=== PATIENT | female | born 1965 | race Caucasian/White ===

== ENCOUNTER 2017-10-30 11:53 | Day surgery (SDC) | payer MEDICAID, SELFPAY ==
[2017-10-30] VITALS (7 sets, daily range): BP systolic 99–123; BP diastolic 63–85; PULSE 72–96; RESP 16–18; TEMP 35.8–36.6; O2SAT 95–99; BMI 47.3
--- NOTE | 2017-10-30 13:30 | RAD_ITS ---
STUDY: X-RAY - LUMBAR SPINE REASON FOR EXAM: Female, 52 years old. Fluoroscopy of the lower back TECHNIQUE: 3 view(s) of the lumbar spine were obtained. COMPARISON: None FINDINGS: Intraoperative fluoroscopy was obtained for 4 level nerve ablation. No acute abnormalities are noted. Please see the performing physician's report for full details. RAD/L/S Spine Min 4 Views IMPRESSION: As above Electronically Signed: Arcenio Pete DO at 15:32 EST Tel , Service support ,
[2017-10-30] MEDS: Bupivacaine 0.25% 30 ML Vial (14:00)
[2017-10-30] MEDS: Triamcinolone Acetonide 40 MG/ML Vial (14:09)
--- NOTE | 2017-10-30 15:21 | PCM.DC ---
- Discharge Diagnoses Current Active Problems: Lumbar facets pain Reason(s) for Visit for Discharge Instructions: Lumbar Facets block / right side You will use the following diet at home:: No restrictions Your food should be the consistency of: Regular Discharge Activity: Return to Normal Activity Call your doctor if your incision/area has: Continuous Slow Oozing, Sudden Increased Bleeding, Increased Pain/ Swelling Call your doctor if you observe: Fever of 101 or Higher, Coldness, Increased Pain, Inability to have a bowel movement, Uncontrolled pain Cleanse incision/area with: Soap & Water Instructions: What Is Osteoarthritis?, Osteoarthritis: Injections or Surgery Allergies/Adverse Reactions: Allergies bupropion HCl [From Wellbutrin] Allergy (Verified 10/19/17 10:21) Shortness of breath Penicillins Allergy (Verified 10/19/17 10:21) Hives pregabalin [From Lyrica] Allergy (Verified 10/19/17 10:21) Other Medications to take at Discharge Albuterol Sulfate [Proventil Hfa] 6.7 gm IH Q4H PRN 05/15/15 Duloxetine Hcl [Cymbalta] 120 mg PO DAILY 05/15/15 Gabapentin [Neurontin] 800 mg PO 4X/DAY 05/15/15 Levothyroxine [Synthroid] 25 mcg PO DAILY 05/15/15 Pravastatin Sodium [Pravachol] 10 mg PO QHS 05/15/15 Quetiapine Fumarate [Seroquel] 600 mg PO QHS 05/15/15 Rivaroxaban [Xarelto] 20 mg PO DAILY 05/15/15 Ropinirole HCl [Requip Xl] 4 mg PO QHS 05/15/15 Tizanidine HCl [Zanaflex] 4 mg PO TID 05/15/15 Fluticasone 0.05% [Flonase Nasal [place]] 2 spray NASAL DAILY 11/28/15 Benztropine [Cogentin] 0.5 mg PO BID 12/14/16 Buspirone HCl [Buspar] 30 mg PO BID 12/14/16 Ranitidine [Zantac] 300 mg PO DAILY 12/14/16 Lisinopril 1 tab PO DAILY 12/16/16 Omeprazole [Prilosec] 40 mg PO QHS 06/23/17 Tiotropium Br/Olodaterol HCl [Stiolto Respimat Inhal [place]] 2 puff IH DAILY 06/23/17 Topiramate [Topamax] 150 mg PO QHS 06/23/17 Albuterol Aerosols [Ventolin Aerosols] 2.5 mg INHALATION Q6H PRN PRN 07/14/17 Docusate Sodium [Colace] 100 mg PO BID PRN PRN #10 cap 07/23/17 oxycodone-acetaminophen 5 mg-325 mg tablet 1 - 2 tab PO Q4H PRN PRN #30 tab 08/31/17 Primary Care Physician: Stephany Davis, [employer] [Primary Care Provider] - Please Follow Up With: Andreina Martinez MD
--- NOTE | 2017-10-30 15:24 | PCM.OP.BLANK ---
Problem List (1) Spondylosis of lumbar region without myelopathy or radiculopathy Status: Acute Operative Report Date of Procedure: 10/30/17 RIGHT LUMBAR FACETS MEDIAL NERVE BRANCH BLOCK AT RIGHT L3-4, L4-5, L5-S1 UNDER FLUOROSCOPIC GUIDANCE Under sterile condition, patient in OR 1, placed on Prone position, pressure points were padded. After appropriate sedation with Anesthesia team, identified access points under fluoroscopy guidance to the right l3-4, L4-5, L5-S1 facets joints access to the Medial nerve branch supplying those joints with Oblique/ lateral and AP fluoroscopy guidance . Infiltration of skin with local anesthesia Lidocaine 1 % preservative free 2.5 ml at each point. Using 22 gauge needle 5 inches in length to access to the MNB supplying each of the facets jints indicated above. After confirmation of final placement , injected 2.5 ml ,mixture of Marcaine 0.25 % and Kenalog 20 mg at each nerve. Patient has tolerated the procedure well, intact neurological function after the procedure and discharged home in stable condition to follow up with plan at office visit as discussed in pre procedure visit, patient has expressed full understanding of the above .
== END 2017-10-30 15:22 | disposition home or self-care (01) ==
LOC: SDC 11:55 → ACINP 11:57 → AC 12:03
PROVIDERS: Family Provider Nurse Practitioner Family; PCP Nurse Practitioner Family; Visit Provider Anesthesiology
PROC: 3E0T3BZ Introduction of Anesthetic Agent into Peripheral Nerves and Plexi, Percutaneous Approach (ICD-10-PCS; CPT 64493; principal; 2017-10-30 13:25)
DX: M47.816 Spondylosis without myelopathy or radiculopathy, lumbar region (principal); M17.0 Bilateral primary osteoarthritis of knee; E66.01 Morbid (severe) obesity due to excess calories; Z68.42 Body mass index [BMI] 45.0-49.9, adult; M50.121 Cervical disc disorder at C4-C5 level with radiculopathy; M50.221 Other cervical disc displacement at C4-C5 level; M50.320 Other cervical disc degeneration, mid-cervical region, unspecified level; M51.36 Other intervertebral disc degeneration, lumbar region; M51.16 Intervertebral disc disorders with radiculopathy, lumbar region; G89.4 Chronic pain syndrome; Z79.891 Long term (current) use of opiate analgesic; Z79.899 Other long term (current) drug therapy; Z86.711 Personal history of pulmonary embolism; Z86.718 Personal history of other venous thrombosis and embolism; Z79.01 Long term (current) use of anticoagulants; J44.9 Chronic obstructive pulmonary disease, unspecified; F17.200 Nicotine dependence, unspecified, uncomplicated; G47.30 Sleep apnea, unspecified; R01.1 Cardiac murmur, unspecified; Z85.41 Personal history of malignant neoplasm of cervix uteri; E78.00 Pure hypercholesterolemia, unspecified; K21.9 Gastro-esophageal reflux disease without esophagitis; E06.9 Thyroiditis, unspecified; F32.9 Major depressive disorder, single episode, unspecified; F41.9 Anxiety disorder, unspecified; G25.81 Restless legs syndrome
CPT/HCPCS: 64493; 64494; 64495; 64483; 72110; J7120

== ENCOUNTER 2017-11-13 11:53 | Day surgery (SDC) | payer MEDICAID, SELFPAY ==
[2017-10-30 12:35] VITALS: BMI 47.3
[2017-10-30 14:40] VITALS: BP 99/75
[2017-11-13 12:26] VITALS: BP 131/82; PULSE 76; RESP 18; TEMP 36.5; O2SAT 96; BMI 45.6
--- NOTE | 2017-11-13 13:23 | DCINST_ITS ---
- Discharge Diagnoses Current Active Problems: Lower back pain due to lumbar facet disease You will use the following diet at home:: No restrictions Your food should be the consistency of: Regular Discharge Activity: Return to Normal Activity May shower in (days): 1 May resume sexual activity in: No Restrictions Weight Bearing Status: Weight bearing as tolerated Call your doctor if your incision/area has: Continuous Slow Oozing, Sudden Increased Bleeding, Increased Pain/ Swelling, Foul Smelling Discharge, Swelling at the incision site Call your doctor if you observe: Fever of 101 or Higher, Coldness, Increased Pain, Uncontrolled pain Suture Line Care: Avoid Pulling/Pushing, Avoid Pinching/Bending Cleanse incision/area with: Soap & Water Allergies/Adverse Reactions: Allergies bupropion HCl [From Wellbutrin] Allergy (Verified 11/04/17 13:45) Shortness of breath Penicillins Allergy (Verified 11/04/17 13:45) Hives pregabalin [From Lyrica] Allergy (Verified 11/04/17 13:45) Other Medications to take at Discharge Duloxetine Hcl [Cymbalta] 120 mg PO DAILY 05/15/15 Gabapentin [Neurontin] 800 mg PO 4X/DAY 05/15/15 Levothyroxine [Synthroid] 25 mcg PO DAILY 05/15/15 Pravastatin Sodium [Pravachol] 10 mg PO QHS 05/15/15 Quetiapine Fumarate [Seroquel] 600 mg PO QHS 05/15/15 Ropinirole HCl [Requip Xl] 4 mg PO QHS 05/15/15 Tizanidine HCl [Zanaflex] 4 mg PO TID 05/15/15 Fluticasone 0.05% [Flonase Nasal [place]] 2 spray NASAL DAILY 11/28/15 Benztropine [Cogentin] 0.5 mg PO BID 12/14/16 Buspirone HCl [Buspar] 30 mg PO BID 12/14/16 Ranitidine [Zantac] 300 mg PO DAILY 12/14/16 Lisinopril 1 tab PO DAILY 12/16/16 Omeprazole [Prilosec] 40 mg PO QHS 06/23/17 Topiramate [Topamax] 150 mg PO QHS 06/23/17 Albuterol Aerosols [Ventolin Aerosols] 2.5 mg INHALATION Q6H PRN PRN 07/14/17 Docusate Sodium [Colace] 100 mg PO BID PRN PRN #10 cap 07/23/17 oxycodone-acetaminophen 5 mg-325 mg tablet 1 - 2 tab PO Q4H PRN PRN #30 tab 01/12 albuterol sulfate HFA 90 mcg/actuation aerosol inhaler 2 puff INHALATION Q4H PRN #18 g 11/04/17 rivaroxaban 20 mg tablet 20 mg PO DAILY #90 tab 11/04/17 tiotropium 2.5 mcg-olodaterol 2.5 mcg/actuation mist for inhalation 2 puff INHALATION DAILY #4 g 11/04/17 Primary Care Physician: Maude Villegas [Primary Care Provider] - Please Follow Up With: Andreina Martinez MD
--- NOTE | 2017-11-13 13:50 | RAD_ITS ---
STUDY: X-RAY - LUMBAR SPINE REASON FOR EXAM: Female, 52 years old. Left L3-S1 facet block. TECHNIQUE: 3 cone-down view(s) of the lumbar spine were obtained intraoperatively. COMPARISON: None FINDINGS: Imaging provided for left L3-S1 facet joint block. RAD/Lumbar Spine 2 or 3 Views IMPRESSION: Imaging provided for left L3-S1 facet block. Electronically Signed: Cortez Pearson MD at 14:54 EST Tel [phone], Service support ,
--- NOTE | 2017-11-13 13:56 | PCM.OPRPT ---
Problem List (1) Spondylosis of lumbar region without myelopathy or radiculopathy Status: Acute Report of Operation Date of Procedure: 11/13/17 Pre-Operative Diagnosis: Lumbar facet spondylosis and lower back pain Post-Operative Diagnosis: Lumbar facet spondylosis causing lower back pain Surgery/Procedure Performed:: Left side lumbar facets medial nerve branch block at L3 4 L4-5. L5 S1 under fluoroscopy guidance Description of Surgical Findings:: Under sterile conditions. Patient placed in the prone position, pressure points were padded, patient was ready from the nursing and the anesthesia team. After identification of the side and the target area for the block under guided fluoroscopy, the entry site was marked with marking pen. I used Betadine for sterilization of the skin, sterile draping were applied. Using 25-gauge needle to infiltrate the skin with local anesthesia using preservative-free lidocaine 0.5% injected 2.5 mL at each site of entry. Using oblique fluoroscopy, accessed the right medial nerve branches supplying the left lumbar facets L3-4, L4-5, L5-S1 using 22-gauge spinal needle. After confirmation of appropriate needle placement to the targeted area with AP and lateral fluoroscopy, injected 2.5 mL mixture of preservative-free Marcaine 0.5% and Kenalog 20 mg at each site. [place] was removed, pressure dressing were applied. Patient tolerated the procedure well and was taken to the recovery. Type of Anesthesia:: Local MAC, MAC Special Medications: Lidocaine 2.5% preservative-free, preservative-free bupivacaine quarter percent, Kenalog 80 mg Estimated Blood Loss (mL): None Fluids Replaced: Normal saline 50 cc Description of Procedure: Left lumbar facet blocks/medial nerve branch block under fluoroscopy guidance
[2017-11-13] MEDS: Triamcinolone Acetonide 40 MG/ML Vial (14:12)
[2017-11-13] MEDS: Bupivacaine 0.25% 30 ML Vial (14:12)
[2017-11-13 14:28] VITALS: BP 103/89; BP 131/82; PULSE 77; RESP 16; TEMP 37.1; O2SAT 96
[2017-11-13 14:33] VITALS: BP 121/66; BP 131/82; PULSE 75; RESP 16; O2SAT 96
[2017-11-13 14:38] VITALS: BP 120/81; BP 131/82; PULSE 76; RESP 16; O2SAT 96
[2017-11-13 14:43] VITALS: BP 125/83; BP 131/82; PULSE 76; RESP 16; TEMP 36.4; O2SAT 96
[2017-11-13 14:58] VITALS: BP 131/82
== END 2017-11-13 15:00 | disposition home or self-care (01) ==
LOC: SDC 11:53 → AC 11:55
PROVIDERS: Visit Provider Anesthesiology
PROC: 3E0T3BZ Introduction of Anesthetic Agent into Peripheral Nerves and Plexi, Percutaneous Approach (ICD-10-PCS; principal; 2017-11-13 13:45)
DX: M47.816 Spondylosis without myelopathy or radiculopathy, lumbar region (principal); I10 Essential (primary) hypertension; J44.9 Chronic obstructive pulmonary disease, unspecified; F17.200 Nicotine dependence, unspecified, uncomplicated; E78.00 Pure hypercholesterolemia, unspecified; M19.90 Unspecified osteoarthritis, unspecified site; E06.9 Thyroiditis, unspecified; F32.9 Major depressive disorder, single episode, unspecified; F41.9 Anxiety disorder, unspecified; K76.9 Liver disease, unspecified; Z86.711 Personal history of pulmonary embolism; Z79.01 Long term (current) use of anticoagulants; G25.81 Restless legs syndrome; K21.9 Gastro-esophageal reflux disease without esophagitis; Z85.41 Personal history of malignant neoplasm of cervix uteri; R01.1 Cardiac murmur, unspecified; Z79.899 Other long term (current) drug therapy
CPT/HCPCS: 01922; 64493; 64494; 64495; 64483; 72100; J7120

== ENCOUNTER → 2017-11-27 13:14 | Outpatient (CLI) | payer MEDICAID, SELFPAY ==
[2017-11-27 14:19] LABS: Amphetamine Urine VISTA NEGATIVE (<1000 ng/mL); Barbiturate Urine VISTA NEGATIVE (< 200 ng/mL); Benzodiazepine Urine VISTA NEGATIVE (< 200 ng/mL); Cocaine Urine VISTA NEGATIVE (< 300 ng/mL); Ecstacy Urine VISTA NEGATIVE (< 500 ng/mL); Methadone Urine VISTA NEGATIVE (< 300 ng/mL); PCP Urine VISTA NEGATIVE (< 25 ng/mL); THC Urine VISTA NEGATIVE (< 50 ng/mL); Vista UDS pH Range 5
== END ==
PROVIDERS: Visit Provider Anesthesiology
DX: F11.20 Opioid dependence, uncomplicated (principal)
CPT/HCPCS: 80307

== ENCOUNTER → 2018-01-11 10:18 | Outpatient (CLI) | payer MEDICAID, SELFPAY ==
--- NOTE | 2018-01-11 10:20 | RAD_ITS ---
STUDY: X-RAY - LEFT KNEE REASON FOR EXAM: Female, 52 years old. Total knee replacement. 6 month follow-up. TECHNIQUE: 4 view(s) of the knee. COMPARISON: Comparison is made with prior study dated September 02, 2017. FINDINGS: Normal visualized distal femur. Normal visualized proximal tibia and fibula. Normal proximal tibiofibular articulation. The patient is status post left total knee replacement. There is good alignment. The soft tissue structures are unremarkable. RAD/Knee 4 or More Views IMPRESSION: Status post left total knee replacement. There is good alignment. Electronically Signed: Cortez Pearson MD at 15:39 EDT Tel [phone], Service support ,
[2019-01-11 16:43] LABS: Pathologist Comment May follow
[2019-01-11 21:31] LABS: CRYSTALS, BODY FLUID See PATH REV; Source- Body Fluid SYNOVIAL
[2019-01-11 21:32] LABS: Appearance /Synovial Fluid Clear (CLEAR); Color / Synovial Fluid Yellow (Pale Yellow); RBC /Synovial Fluid 31 /mm3 (0); WBC / Synovial Fluid 11 /mm3 (0)
[2019-01-11 21:33] LABS: Lymph 36 %; Monocyte /Synovial Fluid 17 %; Neutrophil 57 % (0-25); Other Cell /Synovial Fluid 40 %
[2019-01-13 13:58] LABS: Pathologist Review Reviewed
[2019-01-13 16:32] LABS: GLUCOSE, SYNOVIAL FLUID 109 mg/dL (.); PROTEIN, SYNOVIAL FLUID 3.5 g/dL (.)
== END ==
PROVIDERS: Orthopaedic Surgery; Visit Provider Orthopaedic Surgery
DX: M17.12 Unilateral primary osteoarthritis, left knee (principal); Z96.652 Presence of left artificial knee joint
CPT/HCPCS: 73564; 82945; 84157; 87070; 87075; 87205; 89050; 89051; 89060

== ENCOUNTER → 2018-01-28 10:59 | Outpatient (CLI) | payer MEDICAID, SELFPAY ==
[2017-11-04 13:44] VITALS: BP 115/65
[2017-11-04 13:58] VITALS: BMI 47.3
--- NOTE | 2018-01-29 07:52 | PFTCOMP ---
COMPLETE PULMONARY FUNCTION TEST INTERPRETATION Brief HPI: Patient is a 52 year old female, currently under the care of Brie Ortiz, who presents to [facility] for complete pulmonary function tests secondary to diagnosis of dyspnea. Respiratory therapist reports good effort and reproducible results. Interpretation: Forced expiration spirometry shows no large airways obstructive ventilatory defect with an FEV1 of 71% predicted. There is no significant bronchodilator response by ATS criteria. Spirograms are of good quality and plateau slowly, indicating slowly emptying areas of the lungs. The respiratory flow volume loop shows decreased expiratory flow rates at high lung volumes consistent with small airways obstruction. Lung volumes by body plethysmography show a normal total lung capacity at 5.24 L, 91% predicted. All other lung volumes are within normal limits. Diffusion capacity by carbon monoxide is decreased at 65% predicted. The airway resistance is normal. Compared to previous pulmonary function tests from November 07, 2016, there has been a significant improvement in FVC, FEV1 and DLCO. Impression: Isolated reduction in diffusing capacity consistent with pulmonary vascular disorder. There has been significant improvement compared to previous testing and patient appears to be back at previous baseline.
--- NOTE | 2018-01-29 07:55 | PFTCOMP_ITS ---
COMPLETE PULMONARY FUNCTION TEST INTERPRETATION Brief HPI: Patient is a 52 year old female, currently under the care of Brie Ortiz, who presents to [facility] for complete pulmonary function tests secondary to diagnosis of dyspnea. Respiratory therapist reports good effort and reproducible results. Interpretation: Forced expiration spirometry shows no large airways obstructive ventilatory defect with an FEV1 of 71% predicted. There is no significant bronchodilator response by ATS criteria. Spirograms are of good quality and plateau slowly, indicating slowly emptying areas of the lungs. The respiratory flow volume loop shows decreased expiratory flow rates at high lung volumes consistent with small airways obstruction. Lung volumes by body plethysmography show a normal total lung capacity at 5.24 L , 91% predicted. All other lung volumes are within normal limits. Diffusion capacity by carbon monoxide is decreased at 65% predicted. The airway resistance is normal. Compared to previous pulmonary function tests from November 07, 2016, there has been a significant improvement in FVC, FEV1 and DLCO. Impression: Isolated reduction in diffusing capacity consistent with pulmonary vascular disorder. There has been significant improvement compared to previous testing and patient appears to be back at previous baseline.
== END ==
PROVIDERS: Visit Provider Nurse Practitioner Acute Care
DX: R06.02 Shortness of breath (principal)
CPT/HCPCS: 94060; 94726; 94729

== ENCOUNTER → 2018-02-01 11:00 | Outpatient (CLI) | payer MEDICAID, SELFPAY ==
[2017-11-04 13:44] VITALS: BP 115/65
[2017-11-04 13:58] VITALS: BMI 47.3
[2018-02-01 11:28] VITALS: PULSE 102; PULSE 103; PULSE 79; PULSE 83; PULSE 88; PULSE 92; PULSE 94; PULSE 99; O2SAT 94; O2SAT 95; O2SAT 96; O2SAT 98
--- NOTE | 2018-02-01 14:40 | WT_ITS ---
PSN 6 Minute Walk Test - 6 Minute Walk Test 6 Minute Walk Test: 6 Minute Walk Test PSN:6-Minute Walk Test Start: 02/01/18 11: 28 Freq: Status: Active Protocol: [id number] Document 02/01/18 11:28 KAREN (Rec: 02/01/18 11:30 KAREN [id number]) 6 Minute Walk Test Date Performed 02/01/18 Time Performed 11:05 Height 5 ft 9 in Weight: 300 lb Weight in Pounds 300.[address]: Dallin Hatch Assistive device used: Cane Pre-test Oxygen Delivery Method Room Air Pulse Ox (%) 96 Pulse Rate (60-100 beats/min) 79 Dyspnea Tiki Scale (0-10) 0 Exertion Tiki Scale (6-20) 6 1st minute Oxygen Delivery Method Room Air Pulse Ox (%) 95 Pulse Rate (60-100 beats/min) 83 2nd minute Oxygen Delivery Method Room Air Pulse Ox (%) 95 Pulse Rate (60-100 beats/min) 92 3rd minute Oxygen Delivery Method Room Air Pulse Ox (%) 94 Pulse Rate (60-100 beats/min) 94 Number of Rests Taken 1 4th minute Oxygen Delivery Method Room Air Pulse Ox (%) 94 Pulse Rate (60-100 beats/min) 99 5th minute Oxygen Delivery Method Room Air Pulse Ox (%) 94 Pulse Rate (60-100 beats/min) 102 H 6th minute Oxygen Delivery Method Room Air Pulse Ox (%) 94 Pulse Rate (60-100 beats/min) 103 H Dyspnea Tiki Scale (0-10) 2 Exertion Tiki Scale (6-20) 14 Post-test Oxygen Delivery Method Room Air Pulse Ox (%) 98 Pulse Rate (60-100 beats/min) 88 Full Laps Walked 12 Partial Lap, Number of Tiles Walked 25 Total Distance Walked (ft) 733 - Interpretation Interpretation: The patient ambulated 733 feet over the course of 6 minutes beginning on room air with use of a cane. Pretesting oxygen saturation was noted to be 96% on room air. With ambulation, the umu oxygen saturation was 94%. Although there was evidence of impaired walk distance, there was no significant exertional oxygen desaturation. - Recommendations Recommendations: There is no indication for the use of supplemental oxygen at this time.
== END ==
PROVIDERS: Visit Provider Nurse Practitioner Acute Care
DX: R06.02 Shortness of breath (principal)
CPT/HCPCS: 94618

== ENCOUNTER → 2018-05-27 13:35 | Outpatient (CLI) | payer MEDICAID, SELFPAY | PROVIDERS: Visit Provider Orthopaedic Surgery | DX: M25.562 Pain in left knee (principal) | CPT/HCPCS: 73564 ==

== ENCOUNTER → 2018-12-18 07:45 | Outpatient (CLI) | payer MEDICARE, SELFPAY ==
--- NOTE | 2018-12-18 07:45 | CYST_PTH ---
PATIENT: RICH YUEN LOC: [facility] U#:[id number] AGE/SX: 60/F ROOM: RE12/18/[address]: Dr. David Verma MD : 1965 BED: DIS: SPEC #: [id number] RECD: 12/18/18 10:51 STATUS: MINERVA BAUTISTA #: [id number] ZACHARY: 12/18/18 07:[address]: David Verma DEPT: SURGICAL PATHOLOGY RECD BY: Brett Mercedes ENTERED: 12/20/18 12:47 SP TYPE: Cyst OTHR DR: [facility] Tissues: Neck, NOS Procedures: Surgery Specimen Level III HEADER OPERATION: Excision of neck cyst PRE-OP DIAGNOSIS: Sebaceous cyst L72.3 TISSUE SUBMITTED: Neck tissue MICROSCOPIC DIAGNOSIS Neck cyst, biopsy: Epidermal inclusion cyst. SJ:silvestre 12/21/18 MICROSCOPIC DESCRIPTION Slides are reviewed. GROSS DESCRIPTION Received in fixative is one container labeled with the patient's name and designated neck cyst. The specimen consists of a previously ruptured self-white cyst measuring 1 x 0.7 x 0.5 cm. The cyst contents consist of self-white cheesy material. The specimen is bisected and submitted entirely in one cassette. / SJ:silvestre 12/20/18 TC:5 CPT: 07149
[2018-12-18 07:56] VITALS: BMI 40.3
== END ==
PROVIDERS: Referring Provider Surgery; Visit Provider Surgery
DX: L72.3 Sebaceous cyst (principal)
CPT/HCPCS: 88304

== ENCOUNTER → 2018-12-23 09:54 | Outpatient (CLI) | payer MEDICARE, SELFPAY ==
[2018-12-18 07:56] VITALS: BMI 40.3
--- NOTE | 2018-12-23 09:57 | RAD_ITS ---
STUDY: X-RAY - RIGHT KNEE REASON FOR EXAM: Female, 53 years old. He pain for one week. Medial swelling. TECHNIQUE: 3 view(s) of the knee. COMPARISON: None. FINDINGS: Normal visualized distal femur. Normal visualized proximal tibia and fibula. Normal proximal tibiofibular articulation. There is no acute fracture, dislocation or destructive osseous pathology. Normal medial femorotibial compartment. There is mild degenerative arthrosis of the lateral femorotibial compartment. There is moderate degenerative arthrosis of the patellofemoral articulation. There is a soft tissue prominence in the suprapatellar region suggesting a small volume joint effusion. The soft tissue structures are unremarkable. 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 Electronically Signed: Guzman Renee DO at 11:03 EDT Tel [phone], Service support ,
== END ==
DX: M25.561 Pain in right knee (principal)
CPT/HCPCS: 73562

== ENCOUNTER → 2019-03-14 12:39 | Outpatient (CLI) | payer MEDICARE, SELFPAY ==
[2018-12-14 10:35] VITALS: BMI 40.3
[2019-01-11 13:27] VITALS: BMI 39.6
--- NOTE | 2019-03-16 10:05 | PFT ---
INTRODUCTION: The patient is a 53-year-old female that presents for pulmonary function studies secondary to a diagnosis of COPD. Respiratory therapy reports good patient effort. Bronchodilators were used during testing. INTERPRETATION: Forced expiration spirometry demonstrates no evidence of a large airways obstructive ventilatory defect. There was no significant response to aerosolized bronchodilators. Spirograms are of good quality and plateau normally. Body plethysmography was performed and reveals lung volumes to be within normal limits. Diffusing capacity by single breath CO is also within normal limits. IMPRESSION: Normal pulmonary function studies.
== END ==
PROVIDERS: Referring Provider Nurse Practitioner Acute Care; Visit Provider Nurse Practitioner Acute Care
DX: J44.9 Chronic obstructive pulmonary disease, unspecified (principal)
CPT/HCPCS: 94060; 94726; 94729

== ENCOUNTER → 2019-06-24 12:32 | Outpatient (CLI) | payer MEDICARE, SELFPAY ==
[2019-06-15 11:05] VITALS: BMI 37.4
--- NOTE | 2019-06-24 12:35 | BI_ITS ---
MAMMOGRAPHY - BILATERAL SCREENING REASON FOR EXAM: Female, 53 years old. Routine annual screening examination. PERTINENT HISTORY: Non-contributory. TECHNIQUE: Digital bilateral breast fly (3D mammographic acquisition) in the CC and MLO projections. 2-D mediolateral oblique (MLO) and craniocaudad (CC) views of both breasts were obtained. CAD: Full Field Digital Mammography with Computer Added Detection was performed. COMPARISON: Comparison is made with prior examination dated August 31, 2017 and November 13, 2011. FINDINGS: Breast Composition: The breasts are almost entirely fatty. There are no dominant masses or suspicious calcifications. No other significant abnormalities are identified. There has been no significant change since the prior study. BI/SCREEN MAMM (CAD) W/FLY BILAT IMPRESSION: Stable bilateral screening mammogram. Yearly follow-up mammogram recommended. (A) ASSESSMENT CATEGORY: BIRADS Category 1: Negative. A letter regarding these results will be sent to the patient by the facility within 30 days. Approximately 10% of breast cancers are not detected by mammography. A normal mammogram should not delay biopsy of a clinically suspicious abnormality. [id number] Electronically Signed: Cortez Pearson, at 10:18 EDT , Service support ,
== END ==
PROVIDERS: Family Provider Nurse Practitioner Family; PCP Nurse Practitioner Family
DX: Z12.31 Encounter for screening mammogram for malignant neoplasm of breast (principal)
CPT/HCPCS: 77063; 77067

== ENCOUNTER → 2019-08-08 15:12 | Outpatient (CLI) | payer MEDICARE, SELFPAY ==
[2019-06-15 11:05] VITALS: BMI 37.4
--- NOTE | 2019-08-08 15:14 | MRI_ITS ---
STUDY: MRI RIGHT KNEE REASON FOR EXAM: Female, 53 years old. RT KNEE PAIN medial and posterior knee pain x 1 year, unstable TECHNIQUE: Standardized fat and water weighted pulse sequences were obtained in all 3 orthogonal planes. COMPARISON: Right knee x-ray dated December 23, 2018 FINDINGS: A small vertical tear is present in the inner one third aspect of the posterior horn of the medial meniscus. The remaining aspects are within normal limits. There is diffuse, less than 50% thickness articular cartilage loss of the medial femorotibial compartment. Normal medial femoral condyle and tibial plateau. Normal medial collateral ligamentous complex (MCL). Normal distal semimembranosus, gracilis and semitendinosus tendons. Normal lateral meniscus. There is diffuse, less than 50% thickness articular cartilage loss of the lateral femorotibial compartment. Normal lateral femoral condyle and tibial plateau. Normal proximal tibiofibular articulation. Normal lateral collateral (fibular) ligament. Normal popliteus tendon. Normal biceps femoris tendon. Normal anterior cruciate ligament (ACL). Normal posterior cruciate ligament (PCL). Normal congruent patellofemoral articulation. There is diffuse, less than 50% thickness articular cartilage loss of the patellofemoral compartment. Small cortical osteophytes are present in the patellofemoral compartment. Normal medial and lateral patellar retinaculum. Normal quadriceps tendon. Normal patellar tendon. Normal Hoffa's fat pad. There is a small volume joint effusion. Mild fatty atrophy is seen in multiple muscles. The otherwise visualized osseous structures are unremarkable. MRI/Lower Ext Joint Only (Routine) IMPRESSION: 1. Small vertical tear of the posterior horn of the medial meniscus. Mild tricompartmental cartilage thinning. 2. Small joint effusion. Electronically Signed: Tyler Rocha MD at 21:27 EST , Service support ,
== END ==
PROVIDERS: Family Provider Nurse Practitioner Family; PCP Nurse Practitioner Family; Referring Provider Orthopaedic Surgery; Visit Provider Orthopaedic Surgery
DX: S83.241A Other tear of medial meniscus, current injury, right knee, initial encounter (principal); X58.XXXA Exposure to other specified factors, initial encounter
CPT/HCPCS: 73721

== ENCOUNTER 2019-09-05 09:33 | Day surgery (SDC) | payer MEDICARE, SELFPAY ==
[2019-08-23 09:04] VITALS: BMI 37.4
--- NOTE | 2019-08-24 12:01 | HP_ITS ---
Intake Vital Signs 08/23/19 Body Mass Index (BMI) 37.4 08/23/19 Height 5 ft 8 in 08/23/19 Weight: 243 lb 6 oz 08/23/19 Body Mass Index (BMI) 37.0 08/23/19 Blood Pressure 106/70 08/23/19 Blood Pressure Location Rt brachial 08/23/19 Blood Pressure Position Sitting 08/23/19 Respiratory Rate 20 H 08/23/19 Pulse Rate 61 08/23/19 Pulse Ox 98 Intake Visit Reasons: Upper/Lower Scope Abdominal Pain Weight Loss Chief Complaint: nausea/ vomiting Pot Liner Required: No Is patient in pain?: No Allergies bupropion HCl [From Wellbutrin] Allergy (Verified 08/23/19 09:01) Shortness of breath Penicillins Allergy (Verified 08/23/19 09:01) Hives pregabalin [From Lyrica] Allergy (Verified 08/23/19 09:01) Other Medications Levothyroxine [Synthroid] 25 mcg PO DAILY 05/15/15 [History Confirmed 08/23/19] Pravastatin Sodium [Pravachol] 10 mg PO QHS 05/15/15 [History Confirmed 08/23/19] Ropinirole HCl [Requip Xl] 4 mg PO QHS 05/15/15 [History Confirmed 08/23/19] Omeprazole [Prilosec] 40 mg PO QHS 06/23/17 [History Confirmed 08/23/19] Albuterol Aerosols [Ventolin Aerosols] 2.5 mg INHALATION Q6H PRN PRN 07/14/17 [History Confirmed 08/23/19] albuterol sulfate HFA 90 mcg/actuation aerosol inhaler 2 puff INHALATION Q4H PRN #18 g 11/04/17 [Rx Confirmed 08/23/19] gabapentin 300 mg capsule 300 mg PO TID 12/01/18 [History Confirmed 08/23/19] umeclidinium 62.5 mcg-vilanterol 25 mcg/actuation powdr for inhalation 1 inh INHALATION Q24H #60 ea 12/14/18 [Rx Confirmed 08/23/19] cholecalciferol (vitamin D3) 50,000 unit capsule 50,000 unit PO QWEEK 01/28/19 [History Confirmed 08/23/19] fluticasone propionate 50 mcg/actuation nasal spray,suspension 2 spray INTRANASAL DAILY 01/28/19 [History Confirmed 08/23/19] albuterol sulfate HFA 90 mcg/actuation aerosol inhaler 1 puff INHALATION Q6H 08/23/19 [History Confirmed 08/23/19] biotin 5,000 mcg sublingual tablet 5,000 mcg SUBLINGUAL DAILY 08/23/19 [History Confirmed 08/23/19] rivaroxaban 20 mg tablet 20 mg PO DAILY 08/23/19 [History Confirmed 08/23/19] Is last menstrual period known: No Post menopausal: Yes Patient : No PFSH Medical History Essential hypertension (Chronic) Right bundle branch block (Chronic) Nicotine dependence, uncomplicated (Chronic) Body mass index 45.0-49.9, adult (Chronic) Family history of hyperlipidemia (Chronic) Stage 2 moderate COPD by GOLD classification (Chronic) Patent foramen ovale (Chronic) Bilateral primary osteoarthritis of knee (Chronic) Spondylosis of lumbar 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) COPD with acute exacerbation (Acute) COAD (chronic obstructive airways disease) (Chronic) Type II diabetes mellitus (Chronic) History of insomnia (Chronic) Obesity (Chronic) Tobacco dependence syndrome (Chronic) RLS (restless legs syndrome) (Chronic) Shortness of breath (Acute) Chest pain (Acute) DVT (deep venous thrombosis) (Chronic) Pulmonary emboli (Chronic) Factor V Leiden (Acute) Anxiety disorder (Chronic) Bipolar disorder (Chronic) Depression (Chronic) Diabetes mellitus (Inactive) H/O: hysterectomy (Inactive) History of anxiety disorder (Inactive) History of bipolar disorder (Inactive) History of depression (Inactive) History of hypertension (Inactive) History of hysterectomy (Inactive) Hypertension (Inactive) Surgical History History of esophagogastroduodenoscopy (EGD) (Acute) History of hysterectomy (Resolved) History of lithotripsy (Resolved ~2001) S/P tonsillectomy (Resolved ~1977) S/P tubal ligation (Resolved ~1989) Status post left knee replacement (Resolved ~06/2017) History of total knee arthroplasty (Inactive) Family History Mother CAD (coronary artery disease) Hypertension CVA (cerebral vascular accident) Father Diabetes CAD (coronary artery disease) Hypertension Son Migraine Sister Diabetes Hypertension Social History (Updated 08/24/19 @ 12:01 by David Verma MD) alcohol intake: never substance use type: does not use caffeine: Yes (4/day) what type of physical activity do you participate in: walking frequency: daily HPI HPI HPI: RICH CASON, is a 54 F who presents to the office today for HPI HPI Surgical H&P: Yes HPI: RICH CASON, is a 54 F who presents to the office today for Evaluation for endoscopy. She states that she has been having nausea and vomiting mostly at nighttime she has been experiencing any pain she has not been having any change in her bowel movements. She has been on Pepcid and omeprazole secondary to gastroesophageal reflux disease. She has never had a colonoscopy but has had an EGD years ago. All the symptoms started about 2 months ago. ROS General General: Yes weight change and fatigue; no appetite, colon cancer, breast cancer or weakness HEENT HEENT: No difficulty swallowing, eye injury, eye surgery, swollen glands or hoarseness Endo Endocrine: Yes thyroid disease; no diabetes mellitus, thyroid cancer, Hair loss, heat intolerance or cold intolerance Cardio Cardiovascular: Yes murmur; no pacemaker, heart disease, atrial fibrillation, high blood pressure, heart attack, heart stent, palpitations, shortness of breat with exertion or chest pain Resp Respiratory: Yes shortness of breath, No sleep apnea, Yes cough, Yes COPD, No asthma, No emphysema, No wheezing Gastro Gastrointestinal: No abdominal pain, Yes nausea or vomiting, Yes diarrhea, Yes constipation, No blood in stool, Yes acid reflux, Yes hemorrhoids, No ulcers, No gallbladder problem, No black,tarry stools Jose Hematologic: No blood thinners, Yes blood disorders, No bleeding, No anemia, No blood clots Additional Details: factor V Neuro Neurologic: No weakness Exam Const General: no acute distress, well developed, well hydrated Orientation: oriented to person, oriented to place, oriented to time [facility] Head: normocephalic, atraumatic Ears: external ears normal Mouth: moist mucous membranes Eyes Sclera: sclerae normal Pupils: normal by confrontation Neck Neck: no lymphadenopathy noted Neck mass: No Thyroid: thyroid normal, symmetrical Chest Chest palpation & inspection: normal inspection of the chest Resp Effort & Inspection: normal respiratory effort Auscultation: clear to auscultation bilaterally Percussion: percussion normal Cardio Rate: regular rate Rhythm: regular rhythm Heart Sounds: murmur GI Inspection: obesity Palpation: soft, no hepatosplenomegaly, no masses, nontender Rectal Exam: other Other: Rectal exam deferred. Extrem General: normal to inspection, no clubbing, cyanosis or edema Assessment & Plan Problems 1. Non-intractable vomiting with nausea, unspecified vomiting type R11.2 2. Encounter for screening colonoscopy Z12.11 3. Gastroesophageal reflux disease, esophagitis presence not specified K21.9 Plan I have discussed the above with the patient. I have offered the patient colonoscopy As well as an EGD for evaluation. I have explained the risks/benefits of the procedure and described the procedure. I have discussed the risks with the patient, including but not limited to: infection, bleeding, perforation of the GI tract requiring emergency surgery, inability to complete the procedure, injury to any internal organs, complications of anesthesia, etc. - the patient understands and agrees to proceed. I have answered all the patient's questions to the patient's satisfaction and the patient has no further questions. The patient has been given instructions for the colon cleansing preparation. Orders Orders: Colonoscopy 08/23/19 EGD 08/23/19 Coding Level of Care Code Off vis,new,level 3 Diagnoses Non-intractable vomiting with nausea, unspecified vomiting type R11.2 ??Vomiting type: unspecified ??Vomiting Intractability: non-intractable Encounter for screening colonoscopy Z12.11 Gastroesophageal reflux disease, esophagitis presence not specified K21.9 ??Esophagitis presence: esophagitis presence not specified 08/24/19 1201 <Electronically signed by David baker MD> Date _ David Verma MD I have re-examined the patient. There are no clinical changes since date of exam.
--- NOTE | 2019-09-05 | IMM_PTH ---
PATIENT: RICH YUEN LOC: EN U#:[id number] AGE/SX: 54/F ROOM: RE09/05/[address]: Dr. David Verma MD : 1965 BED: DIS: 09/05/2019 SPEC #: [id number] RECD: 09/05/19 15:26 STATUS: MINERVA REAmol #: [id number] ZACHARY: 09/05/19 00:[address]: David Verma DEPT: IMMUNOHISTOCHEMISTRY RECD BY: Amish Mohamud ENTERED: 09/05/19 15:26 SP TYPE: IMMUNO OTHR DR: Stephany Davis, GUNSTOCK REPAIRER-C [facility] Tissues: Stomach, NOS Procedures: H Pylori (initial) PHYSICIAN & INSTITUTION [place] [id number] SPECIMEN INFORMATION: Tissue Source: B. Stomach biopsy Clinical Info: Nausea and vomiting, GERD, screening colon Specimen Number: [id number] CPT code: 92805 METHODOLOGY: Deparaffinized sections of prefer/formalin-fixed tissue or PAP/DQ stained slides are incubated with monoclonal/polyclonal antibodies/oligonucleotide probes. Localization is made via biotin free immunoperoxidase method. Appropriate controls are performed and reacted as expected. Results on target cell population are indicated in the following table: RESULTS: ANTIBODY / CLONE RESULT Block B H Pylori (polyclonal) negative These tests were developed and their performance characteristics determined by [facility]. They may not have been cleared or approved by the U.S. Food and Drug Administration. The FDA has determined that such clearance or approval is not necessary. INTERPRETATION: B. Stomach, biopsy: Negative for Helicobacter pylori organisms. AM:abdi 09/06/19
--- NOTE | 2019-09-05 | EGD_PTH ---
PATIENT: RICH YUEN LOC: EN U#:[id number] AGE/SX: 54/F ROOM: RE09/05/[address]: Dr. David Verma MD : 1965 BED: DIS: 09/05/2019 SPEC #: [id number] RECD: 09/05/19 13:46 STATUS: MINERVA BAUTISTA #: [id number] ZACHARY: 09/05/19 00:[address]: David Verma DEPT: SURGICAL PATHOLOGY RECD BY: Cayden Diego ENTERED: 09/05/19 13:47 SP TYPE: EGD BIOPSY MOI DR: Stephany Davis, MUCK MINER-C [facility] Tissues: A - Small intestine biopsy B - Stomach, NOS C - Ascending colon Procedures: Surgery Specimen Level IV HEADER OPERATION: Colonoscopy, EGD ([facility]) PRE-OP DIAGNOSIS: Nausea and vomiting, GERD, screening colon TISSUE SUBMITTED: A. Small bowel biopsy, B. Stomach biopsy, C. Ascending colon polyp MICROSCOPIC DIAGNOSIS A. Small bowel, biopsy: No pathologic change. B. Stomach, biopsy: Mild chronic gastritis. C. Ascending colon polyp, biopsy: Fragments of tubular adenoma. AM:andria 09/06/19 COMMENT B. The results of immunohistochemistry for Helicobacter pylori will be reported separately ([id number]). MICROSCOPIC DESCRIPTION Slides are reviewed. GROSS DESCRIPTION A. Received is one container labeled with the patient name and designated small bowel biopsy. The specimen consists of one irregular fragment of light self soft tissue that measures 0.6 x 0.3 x 0.1 cm. The specimen is totally submitted in one cassette. B. Received is one container labeled with the patient name and designated stomach biopsy. The specimen consists of one irregular fragment of light self soft tissue that measures 0.7 x 0.2 x 0.1 cm. The specimen is totally submitted in one cassette. C. Received is one container labeled with the patient name and designated ascending colon polyp. The specimen consists of multiple irregular fragments of light self soft tissue that in aggregate measure 0.6 x 04 x 0.1 cm. The specimen is totally submitted in one cassette. / WINSTON:andria 09/05/19 TC: 3 CPT: 56786 x3
[2019-09-05 09:54] VITALS: BP 108/65; PULSE 66; RESP 15; TEMP 36.6; O2SAT 97; BMI 36.3
[2019-09-05] MEDS: Lactated Ringers 1,000 ML 100 ML IV (10:03)
--- NOTE | 2019-09-05 10:55 | OP.EGD_ITS ---
Patient Name: Ly rOta Procedure Date: 09/05/2019 10:18 AM Date of : 1965 Age: 54 Procedure: Upper GI endoscopy Indications: Gastro-esophageal reflux disease, Nausea with vomiting Providers: David Verma MD Referring MD: Maude Suazo [facility] Medicines: See the Anesthesia note for documentation of the administered medications Patient Profile: This is a 54 year old female. Refer to note in patient chart for documentation of history and physical. Complications: No immediate complications. Procedure: Pre-Anesthesia Assessment: - Prior to the procedure, a History and Physical was performed, and patient medications and allergies were reviewed. The patient's tolerance of previous anesthesia was also reviewed. The risks and benefits of the procedure and the sedation options and risks were discussed with the patient. All questions were answered, and informed consent was obtained. Prior Anticoagulants: The patient has taken Xarelto (rivaroxaban), last dose was 7 days prior to procedure. ASA Grade Assessment: III - A patient with severe systemic disease. After reviewing the risks and benefits, the patient was deemed in satisfactory condition to undergo the procedure. After obtaining informed consent, the endoscope was passed under direct vision. Throughout the procedure, the patient's blood pressure, pulse, and oxygen saturations were monitored continuously. The gastroscope was introduced through the mouth, and advanced to the second part of duodenum. The upper GI endoscopy was accomplished without difficulty. The patient tolerated the procedure well. Scope In: 10:28:51 AM Scope Out: 10:33:07 AM Total Procedure Duration Time 0 hours 4 minutes 16 seconds Findings: The examined esophagus was normal. Localized mildly erythematous mucosa without bleeding was found in the prepyloric region of the stomach. Biopsies were taken with a cold forceps for Helicobacter pylori testing. The examined duodenum was normal. Biopsies for histology were taken with a cold forceps for evaluation of celiac disease. Impression: - Normal esophagus. - Erythematous mucosa in the prepyloric region of the stomach. Biopsied. - Normal examined duodenum. Biopsied. Recommendation: - Await pathology results. - Repeat upper endoscopy (date not yet determined) for surveillance. - Return to physician plant attendant or assistant operator in 1 week. - Continue present medications. Procedure Code(s): --- Professional --- 22537, Esophagogastroduodenoscopy, flexible, transoral; with biopsy, single or multiple Diagnosis Code(s): --- Professional --- K31.89, Other diseases of stomach and duodenum K21.9, Gastro-esophageal reflux disease without esophagitis R11.2, Nausea with vomiting, unspecified CPT copyright 2017 [employer]. All rights reserved. The codes documented in this report are preliminary and upon knuckler review may be revised to meet current compliance requirements. MD Dvaid Gutierrez MD 09/05/2019 10:55:19 AM This report has been signed electronically. Number of Addenda: 0 Note Initiated On: 09/05/2019 10:18 AM
[2019-09-05 10:59] VITALS: BP 108/65; BP 87/58; PULSE 58; RESP 16; TEMP 36.7; O2SAT 95
--- NOTE | 2019-09-05 10:59 | OP.COLON_ITS ---
Patient Name: Ly Orta Procedure Date: 09/05/2019 10:34 AM Date of : 1965 Age: 54 Procedure: Colonoscopy Indications: Screening for colorectal malignant neoplasm Providers: David Verma MD Referring MD: Maude Suazo [facility] Medicines: See the Anesthesia note for documentation of the administered medications Patient Profile: This is a 54 year old female. Refer to note in patient chart for documentation of history and physical. Last Colonoscopy: none. The patient's first colonoscopy is today. Complications: No immediate complications. Procedure: Pre-Anesthesia Assessment: - Prior to the procedure, a History and Physical was performed, and patient medications and allergies were reviewed. The patient's tolerance of previous anesthesia was also reviewed. The risks and benefits of the procedure and the sedation options and risks were discussed with the patient. All questions were answered, and informed consent was obtained. Prior Anticoagulants: The patient has taken Xarelto (rivaroxaban), last dose was 7 days prior to procedure. ASA Grade Assessment: III - A patient with severe systemic disease. After reviewing the risks and benefits, the patient was deemed in satisfactory condition to undergo the procedure. After I obtained informed consent, the scope was passed under direct vision. Throughout the procedure, the patient's blood pressure, pulse, and oxygen saturations were monitored continuously. The colonoscope was introduced through the anus and advanced to the cecum, identified by appendiceal orifice and ileocecal valve. The colonoscopy was performed without difficulty. The patient tolerated the procedure well. The quality of the bowel preparation was good. Scope In: 10:35:42 AM Scope Withdrawal Time 0 hours 9 minutes 4 seconds Scope Out: 10:50:40 AM Total Procedure Duration Time 0 hours 14 minutes 58 seconds Findings: A 3 mm polyp was found in the ascending colon. The polyp was sessile. The polyp was removed with a cold snare. Resection and retrieval were complete. This polyp was nearly completely destroyed with a polypectomy. I saw no redundant pieces within the colon itself and assumed that most of it was drawn back up into the channel of the scope. It had all the appearance of a hyperplastic polyp. Non-bleeding internal hemorrhoids were found during retroflexion. The hemorrhoids were mild and small. The exam was otherwise without abnormality. Impression: - One 3 mm polyp in the ascending colon, removed with a cold snare. Resected and retrieved. - Non-bleeding internal hemorrhoids. - The examination was otherwise normal. Recommendation: - Await pathology results. - Repeat colonoscopy in 10 years for surveillance. - Return to my office in 1 week. - Continue present medications. Procedure Code(s): --- Professional --- 47316, Colonoscopy, flexible; with removal of tumor(s), polyp(s), or other lesion(s) by snare technique Diagnosis Code(s): --- Professional --- Z12.11, Encounter for screening for malignant neoplasm of colon D12.2, Benign neoplasm of ascending colon K64.8, Other hemorrhoids CPT copyright 2017 [employer]. All rights reserved. The codes documented in this report are preliminary and upon certified procedural coder review may be revised to meet current compliance requirements. MD David Gutierrez MD 09/05/2019 10:58:48 AM This report has been signed electronically. Number of Addenda: 0 Note Initiated On: 09/05/2019 10:34 AM
[2019-09-05 11:05] VITALS: BP 108/65; BP 88/54; PULSE 62; RESP 16; O2SAT 95
[2019-09-05 11:11] VITALS: BP 100/60; BP 108/65; BP 87/64; PULSE 64; PULSE 66; RESP 16; TEMP 36.7; O2SAT 96
[2019-09-05 11:25] VITALS: BP 108/65
== END 2019-09-05 11:32 | disposition home or self-care (01) ==
LOC: EN 09:33 → AC 09:34
PROVIDERS: Visit Provider Surgery
PROC: 0DJD8ZZ Inspection of Lower Intestinal Tract, Via Natural or Artificial Opening Endoscopic (ICD-10-PCS; CPT 45378; principal; 2019-09-05 10:40)
DX: Z12.11 Encounter for screening for malignant neoplasm of colon (principal); K21.9 Gastro-esophageal reflux disease without esophagitis; R11.2 Nausea with vomiting, unspecified; K31.89 Other diseases of stomach and duodenum; D12.2 Benign neoplasm of ascending colon; K64.8 Other hemorrhoids; Z79.01 Long term (current) use of anticoagulants; Z88.0 Allergy status to penicillin; I10 Essential (primary) hypertension; Q21.1 Atrial septal defect; E11.9 Type 2 diabetes mellitus without complications; J44.9 Chronic obstructive pulmonary disease, unspecified; F17.200 Nicotine dependence, unspecified, uncomplicated; F31.9 Bipolar disorder, unspecified
CPT/HCPCS: 43239; 45385; 88305; 88342; J7120; J2405

== ENCOUNTER → 2020-02-10 13:41 | Outpatient (CLI) | payer MEDICARE, MEDICAID, SELFPAY ==
--- NOTE | 2020-02-10 13:46 | ART_ITS ---
Reason For Study: PVD Procedure A bilateral lower extremity continuous wave Doppler with analog waveform analysis,segmental pressures,and ankle brachial indexes without exercise. Left Segmental Pressures Left brachial= 119mmHg. Left posterior tibial artery = 128mmHg. Left dorsalis pedis artery = 131mmHg. Left digit = 97 mmHg. The left dorsalis pedis waveforms are triphasic. The left posterior tibial artery waveforms are triphasic. Right Segmental Pressures Right brachial= 123mmHg. Right posterior tibial artery = 135mmHg. Right dorsalis pedis artery = 134mmHg. Right digit = 99 mmHg. The right dorsalis pedis waveforms are triphasic. The right posterior tibial artery waveforms are triphasic. Indices The right ankle brachial index by the dorsalis pedis is 1.09. The right ankle brachial index by the posterior tibial artery is 1.10. The right digital-brachial index is 0.80. The left ankle brachial index by the dorsalis pedis is 1.07. The left ankle brachial index by the posterior tibial artery is 1.04. The left digital-brachial index is 0.79. Interpretation Summary Triphasic Doppler waveforms are noted at ankle level bilaterally. Pulse-volume recordings appear satisfactory at all levels bilaterally. Resting ankle-brachial indices are normal bilaterally. Digital-brachial indices are normal bilaterally. There is no evidence of significant arterial occlusive disease in the lower extremities bilaterally. Ordering Physician: Charlie Rosa Performed By: Bri Swanson RVT
== END ==
PROVIDERS: Referring Provider Podiatrist; Visit Provider Podiatrist
DX: I73.9 Peripheral vascular disease, unspecified (principal)
CPT/HCPCS: 93923

== ENCOUNTER → 2020-05-29 09:04 | Outpatient (CLI) | payer MEDICARE, MEDICAID, SELFPAY ==
[2020-05-29 09:34] LABS: Absolute Lymphocyte Count 2.74 X10^3/uL (0.83-4.51); Absolute Neutrophil Count 4.3 X10^3/uL (2.0-7.7); Basophil# 0.03 X10^3/uL; Basophil% 0.4 % (0-1); Eosinophil# 0.09 X10^3/uL; Eosinophils% 1.2 % (0-5); Hematocrit 45.5 % (37-47); Hemoglobin 14.4 g/dL (12.0-15.0); Lymphocyte # 2.74 X10^3/ul (4.0); Lymphocyte % 35.3 % (19-41); Mean Corp Hgb Conc 31.6 g/dL (32-36); Mean Corpuscular Hgb 30.7 pg (27.0-32.0); Mean Platelet Vol. 11.8 fl (6.2-12.0); Monocyte# 0.56 X10^3/uL; Monocyte% 7.2 % (0-10); NRBC Flagged by Analyzer 0 % (0-5); Neutrophil # 4.34 X10^3/uL (2.7-7.7); Neutrophil % 55.8 % (47-70); Platelet Count 225 K/mm3 (150-450); RBC Distribution Width CV 13.3 % (11.6-14.6); RBC Distribution Width SD 47.3 fl (35.1-43.9); Red Blood Count 4.69 M/mm3 (4.2-5.4); White Blood Count 7.8 K/mm3 (4.4-11.0)
[2020-05-29 09:50] LABS: Hemoglobin A1c 5.8 % (3.8-5.6)
[2020-05-29 10:19] LABS: Vitamin D,25 Hydroxy 50.6 ng/mL
[2020-05-29 10:23] LABS: ALB/GLOB Ratio 1.1 RATIO (0.9-2.4); AST(SGOT) 12 U/L (15-37); Alanine Aminotransfer ALT/SGPT 19 U/L (13-56); Alkaline Phosphatase 71 U/L (45-117); Anion Gap 2 (5-15); BUN 20 mg/dL (7-18); BUN/Creat Ratio 26.7 RATIO (10-20); Calcium,Total 8.8 mg/dL (8.5-10.1); Chloride 112 mmol/L (98-107); Cholesterol 179 mg/dL (200); Creatinine, Serum 0.75 mg/dL (0.55-1.02); EST Glomerular Filtration Rate 85 mL/min (>60); Est Glom Filt Rate - Afr Amer 103 mL/min (>60); Globulin 3.6 g/dL (2.2-4.2); Glucose 96 mg/dL (74-106); High Density Lipoprotein 72 mg/dL; Potassium 3.8 mmol/L (3.5-5.1); Protein, Total 7.6 g/dL (6.4-8.2); Sodium Level 141 mmol/L (136-145); T4 Free Direct 1.08 ng/dL (0.76-1.46); Thyroid Stim Hormone (TSH) 1.69 uIU/mL (0.358-3.74); Triglycerides 100 mg/dL; Very Low Density Lipoprotein 20 mg/dL (5-40)
== END ==
PROVIDERS: Nurse Practitioner Family
DX: E11.42 Type 2 diabetes mellitus with diabetic polyneuropathy (principal); F31.9 Bipolar disorder, unspecified; E03.9 Hypothyroidism, unspecified; E78.5 Hyperlipidemia, unspecified; E55.9 Vitamin D deficiency, unspecified
CPT/HCPCS: 36415; 80053; 80061; 82306; 83036; 84439; 84443; 85025

== ENCOUNTER → 2021-02-28 12:59 | Outpatient (CLI) | payer MEDICARE, MEDICAID, SELFPAY ==
[2021-02-28 14:11] LABS: Absolute Lymphocyte Count 2.08 X10^3/uL (0.83-4.51); Absolute Neutrophil Count 4.1 X10^3/uL (2.0-7.7); Basophil# 0.03 X10^3/uL; Basophil% 0.4 % (0-1); Eosinophil# 0.08 X10^3/uL; Eosinophils% 1.2 % (0-5); Hemoglobin 14.1 g/dL (12.0-15.0); Lymphocyte # 2.08 X10^3/ul (0.83-4.51); Lymphocyte % 30.8 % (19-41); Mean Corp Hgb Conc 32.8 g/dL (32-36); Mean Corpuscular Hgb 30.6 pg (27.0-32.0); Mean Corpuscular Volume 93.3 fL (81-99); Mean Platelet Vol. 12.8 fl (6.2-12.0); Monocyte# 0.49 X10^3/uL; Monocyte% 7.3 % (0-10); NRBC Flagged by Analyzer 0 % (0-5); Neutrophil # 4.05 X10^3/uL (2.7-7.7); Platelet Count 205 K/mm3 (150-450); RBC Distribution Width CV 14.7 % (11.6-14.6); RBC Distribution Width SD 50.4 fl (35.1-43.9); Red Blood Count 4.61 M/mm3 (4.2-5.4); White Blood Count 6.8 K/mm3 (4.4-11.0)
[2021-02-28 14:42] LABS: Anion Gap 8 (5-15); BUN 10 mg/dL (7-18); BUN/Creat Ratio 11.8 RATIO (10-20); Calcium,Total 9.1 mg/dL (8.5-10.1); Chloride 110 mmol/L (98-107); Creatinine, Serum 0.84 mg/dL (0.55-1.02); EST Glomerular Filtration Rate 74 mL/min (>60); Est Glom Filt Rate - Afr Amer 90 mL/min (>60); Glucose 104 mg/dL (74-106); Hemoglobin A1c 5.6 % (3.8-5.6); Potassium 3.7 mmol/L (3.5-5.1); Sodium Level 145 mmol/L (136-145)
== END ==
DX: E78.5 Hyperlipidemia, unspecified (principal); E11.42 Type 2 diabetes mellitus with diabetic polyneuropathy; J44.9 Chronic obstructive pulmonary disease, unspecified
CPT/HCPCS: 36415; 80048; 83036; 84443; 85025

== ENCOUNTER 2021-04-05 13:30 | Outpatient (RCR) | payer MEDICARE, MEDICAID, SELFPAY ==
--- NOTE | 2021-03-19 14:33 | HP.PTEVAL_ITS ---
Patient's Visit Information RICH CASON is a 55 year old F referred to Physical Therapy by FABBY Martinez with a diagnosis of Lumbago and radiating pain down R LE. Date of Evaluation: 03/19/21 Physical Therapist: DELBERT Vazquez - Visit Plan Frequency: 2-3x /Week Duration: 6 Weeks Plan: 2-3X/ week for 4-6 weeks for postural exercises, stretching into SB to the L and strengthening the paraspinals (especially the L side), core stability, LE strength, gait training, functional training, stretching with HEP - Subjective Pt reports that she back and R leg pain. Pain is across LB and affecting her R side. It makes her want to lean on the R cause it helps but at times she wants to get off that R side. She has not had any x-rays or MRI's for over 3 years. She reports that she has HD, Stenosis of the spine on old reports. She has been in PT for land and aqua therapy. Dr wants to see if PT will help cause she can not do injections due to blood thinners due to PE. She does not want to do Pills. Last time land helped her better than water. The back and leg pain stops here from walking. Her son lives less than a block from here and she can not walk it. She lost weight and had knee surgery to be able to walk and now she can not. It hurts to go up stairs, lift, walk, sit. She feels like an invalid and had to talk to the Dr. She has not had any falls. Sit to stand: able to get up but she has to use her arms to get up. She is sleeping at night but she does wake up when she rolls over and she just got a new mattress. - Pain back pain Pain Intensity (Out of 10): 4 R leg pain Pain Intensity (Out of 10): 2 Pain Intensity Range: 8 Comment: walking in the dept - Objective Gait: Pt walks with L side bending. Trunk AROM: flexion 100%, ext 50% ( goes back farther on the R than the L), Rot B 75%, SB R 100%, and SB L 50%,. LE MMT: B hip flex 4-/5, B knee ext 4-/5, B knee flex 4-/5, B hip abd 4-/5, full bridge AROM, Pt is able to walk on toes but struggles to walk on heels. Posture: Side bent to the R and R shoulder is much lower than the Left. -SLR. Increase pain with side bending to the Left. - Goals Goal 1:: I HEP Goal Time Frame: 6-8 Weeks Goal 2:: Be able to stand and walk with more upright posture as opposed to flexed and SB to the Right Goal Time Frame: 6-8 Weeks Goal 3:: Increase LE strength by 1/2 muscle grade (at time of eval:LE MMT: B hip flex 4-/5, B knee ext 4-/5, B knee flex 4-/5, B hip abd 4-/5, full bridge AROM).... also able to walk on toes but struggles to walk on heels. Goal Time Frame: 6-8 Weeks Goal 4:: Decrease pain with standing and walking by 50% Goal Time Frame: 6-8 Weeks - Rehabilitation Potential Rehabilitation Potential: Good - Anticipated Interventions Patient/Client Instruction: Educate patient on: Condition, Plan of Care For the Purpose of:: To decrease pain, To increase ROM, To improve nutrient delivery to tissue, To improve muscle performance and motor function, To improve ability to perform ADL's, To increase tolerance to activity/condition/position, To improve performance and independence with ADL's, To decrease level of supervision to perform tasks, To improve ability of physical actions for home/community/work/leisure, To improve gait and locomotor functions, To improve health of tissue, To decrease soft tissue restriction, To increase flexibility/ROM, To improve endurance Therapeutic Exercise to Include: Strength training, Body mechanics, Postural training, Flexibilty training, Gait and locomotor training, Passive ROM, Active ROM, Dynamic Lumbar Stabilization For the Purpose of:: To decrease pain, To increase ROM, To improve nutrient delivery to tissue, To improve muscle performance and motor function, To improve ability to perform ADL's, To increase tolerance to activity/condition/position, To improve performance and independence with ADL's, To improve ability of physical actions for home/community/work/leisure, To improve health of tissue, To decrease soft tissue restriction, To increase flexibility/ROM Manual Therapy Techniques to Include: Mobilization, Passive ROM For the Purpose of:: To decrease pain, To increase ROM, To improve nutrient delivery to tissue, To improve muscle performance and motor function, To improve ability to perform ADL's, To increase tolerance to activity/condition/position, To improve performance and independence with ADL's, To decrease soft tissue restriction, To increase flexibility/ROM Thank you for the opportunity to evaluate your patient. For Medicare and Medicare HMO plans, please review the plan of care and approve it. It will need to be FAXED BACK to us at [phone] for Medicare purposes. For Medicare only, by signing this I certify the plan of care. Please let me know if there are questions or concerns regarding this plan of care. Physician Signature: Date:
== END 2021-04-05 19:00 | disposition home or self-care (01) ==
LOC: PT 13:30
PROVIDERS: Referring Provider Nurse Practitioner Adult Health; Visit Provider Nurse Practitioner Adult Health
DX: M54.41 Lumbago with sciatica, right side (principal); M54.2 Cervicalgia
CPT/HCPCS: 97110; 97161

== ENCOUNTER → 2021-06-20 17:21 | Outpatient (CLI) | payer MEDICARE, MEDICAID, SELFPAY ==
--- NOTE | 2021-06-20 16:40 | BI_ITS ---
MAMMOGRAPHY - BILATERAL SCREENING REASON FOR EXAM: Female, 55 years old. Routine annual screening examination. PERTINENT HISTORY: Non-contributory. TECHNIQUE: Digital bilateral breast fly (3D mammographic acquisition) in the CC and MLO projections. 2-D mediolateral oblique (MLO) and craniocaudad (CC) views of both breasts were obtained. CAD: Full Field Digital Mammography with Computer Added Detection was performed. COMPARISON: Comparison is made with prior study of 06/24/2019 and 08/31/2017. FINDINGS: Breast Composition: The breasts are almost entirely fatty. There are no dominant masses or suspicious calcifications. Stable benign-appearing bilateral axillary nodes. No other significant abnormalities are identified. There has been no significant change since the prior study. BI/SCRN MAMM (CAD)W/FLY BILAT IMPRESSION: Stable bilateral screening mammogram. Yearly follow-up mammogram recommended. (A) ASSESSMENT CATEGORY: BIRADS Category 2: Benign. A letter regarding these results will be sent to the patient by the facility within 30 days. Approximately 10% of breast cancers are not detected by mammography. A normal mammogram should not delay biopsy of a clinically suspicious abnormality. [id number] Electronically Signed: Cortez Pearson MD at 9:07 EDT , Service support ,
--- NOTE | 2021-06-20 17:24 | CT_ITS ---
STUDY: LOW DOSE CT LUNG CANCER SCREENING REASON FOR EXAM: Female, 55 years old. A smoker. 45 pack-year history. RADIATION DOSAGE (If Supplied By Facility): CTDIvol = ( 4.02 ) mGy, DLP = ( 153.51 ) mGycm TECHNIQUE: No contrast was administered. Low dose technique was utilized (average mAS-38 and kVp 120). 1.25 mm axial source images with a slice interval of 1.25-mm were reconstructed in lung windows. 2.5 mm axial source images with a slice interval of 2.5-mm were reconstructed in lung windows. 5.0 mm axial source images with a slice interval of 5.0-mm were reconstructed in soft tissue windows. Nodule measured using lung windows on PACS and/or independent workstation with automated measurement of minimum and maximum diameter. Nodule measurement reported as average diameter rounded to the nearest whole number. Growth is defined as an increase ins size of greater than 1.5 mm. COMPARISON: Chest 12/14/2016 CTA of the chest, 05/17/2014. NODULES: Total lung nodules (excluding granulomas): 0 Emphysema: No there is a right azygos lobe. Endobronchial lesion: No Aorta: Normal Coronary arteries: Minimal coronary artery calcifications. Heart: Normal in size Pulmonary artery: Normal Mediastinal nodes: None Other chest and abdominal findings: Degenerative changes of the thoracic spine. CT/Low Dose CT Lung Screening IMPRESSION: Lung-RADS category 1 - Continue annual screening with LDCT in 12 months. IMPORTANT NOTES FOR USE: ACR Lung-RADS Version 1.1 Assessment Categories Release Date: 2018 Category: Coded 0-4 bases on nodule(s) with highest degree of suspicion. Negative screen is defined as categories 1 and 2; a positive screen is defined as categories 3 and 4. Category 3 and 4A nodules that are unchanged on interval CT should be coded as category 2, and individuals returned to screening in 12 months. Category 4X: Category 3 or 4 nodules with additional imaging findings that increase the suspicion of lung cancer, such as spiculation, GGN that doubles in size in 1 year, enlarged lymph notes, etc. Category Modifiers: S (significant finding unrelated to lung cancer) Electronically Signed: Guzman Renee DO at 23:59 EDT Tel [phone], Service support ,
== END ==
PROVIDERS: Referring Provider Nurse Practitioner Adult Health; Visit Provider Nurse Practitioner Adult Health
DX: Z12.31 Encounter for screening mammogram for malignant neoplasm of breast (principal); J44.9 Chronic obstructive pulmonary disease, unspecified; F17.210 Nicotine dependence, cigarettes, uncomplicated
CPT/HCPCS: 71271; 77063; 77067

== ENCOUNTER → 2024-02-08 | Outpatient (CLI) | payer MEDICARE, MEDICAID, SELFPAY ==
[2024-02-08 11:15] LABS: Absolute Lymphocyte Count 1.24 X10^3/uL (0.83-4.51); Absolute Neutrophil Count 4.1 X10^3/uL (2.0-7.7); Basophil# 0.03 X10^3/uL; Basophil% 0.5 % (0-1); Eosinophil# 0.04 X10^3/uL; Eosinophils% 0.7 % (0-5); Hematocrit 46.5 % (37-47); Hemoglobin 15.1 g/dL (12.0-15.0); Lymphocyte # 1.24 X10^3/ul (0.83-4.51); Lymphocyte % 20.7 % (19-41); Mean Corp Hgb Conc 32.5 g/dL (32-36); Mean Corpuscular Hgb 31.1 pg (27.0-32.0); Mean Corpuscular Volume 95.7 fL (81-99); Mean Platelet Vol. 12.1 fl (6.2-12.0); Monocyte# 0.53 X10^3/uL; Monocyte% 8.8 % (0-10); NRBC Flagged by Analyzer 0 % (0-5); Neutrophil # 4.13 X10^3/uL (2.7-7.7); Platelet Count 193 K/mm3 (150-450); RBC Distribution Width CV 14.1 % (11.6-14.6); RBC Distribution Width SD 49.9 fl (35.1-43.9); Red Blood Count 4.86 M/mm3 (4.2-5.4)
[2024-02-08 12:19] LABS: ALB/GLOB Ratio 0.9 RATIO (0.9-2.4); AST(SGOT) 13 U/L (15-37); Alanine Aminotransfer ALT/SGPT 16 U/L (13-56); Albumin, Serum 3.6 g/dL (3.2-5.0); Alkaline Phosphatase 60 U/L (45-117); Anion Gap 7 (5-15); BUN 9 mg/dL (7-18); BUN/Creat Ratio 9.4 RATIO (10-20); Calcium,Total 9.1 mg/dL (8.5-10.1); Chloride 108 mmol/L (98-107); Creatinine, Serum 0.96 mg/dL (0.55-1.02); EST Glomerular Filtration Rate 63 mL/min (>60); Est Glom Filt Rate - Afr Amer 77 mL/min (>60); Globulin 4.1 g/dL (2.2-4.2); Glucose 129 mg/dL (74-106); Magnesium 2.3 mg/dL (1.6-2.6); Protein, Total 7.7 g/dL (6.4-8.2); Sodium Level 139 mmol/L (136-145); Thyroid Stim Hormone (TSH) 1.98 uIU/mL (0.358-3.74)
== END | disposition home or self-care (01) ==
LOC: LAB 10:26
PROVIDERS: Referring Provider Nurse Practitioner Family; Visit Provider Nurse Practitioner Family
DX: R56.9 Unspecified convulsions (principal)
CPT/HCPCS: 36415; 80053; 83735; 84443; 85025

== ENCOUNTER → 2024-03-21 | Outpatient (CLI) | payer MEDICARE, MEDICAID, SELFPAY ==
--- NOTE | 2024-03-21 13:29 | US_ITS ---
STUDY: ULTRASOUND OF THE FEMALE PELVIS - COMPLETE REASON FOR EXAM: Female, 58 years old. POSTMENOPAUSAL BLEEDING -- HX OF HYSTERECTOMY AND BILAT OPHORECTOMY 2008 LMP: Patient is postmenopausal. TECHNIQUE: Transvaginal TECHNICAL QUALITY: Adequate. COMPARISON: None. FINDINGS: The patient is status post hysterectomy. The right ovary is non-visualized. The patient is status post right oophorectomy. The left ovary is non-visualized. The patient is status post left oophorectomy. There is no fluid in the cul-de-sac. US/Transvaginal Non- IMPRESSION: Status post hysterectomy and bilateral oophorectomy. Electronically Signed: Cortez Pearson MD at 8:14 EDT ,
== END | disposition home or self-care (01) ==
LOC: US 13:27
PROVIDERS: Referring Provider Nurse Practitioner Family; Visit Provider Nurse Practitioner Family
DX: R56.9 Unspecified convulsions (principal); N95.0 Postmenopausal bleeding
CPT/HCPCS: 76830

== ENCOUNTER → 2024-12-14 | Outpatient (CLI) | payer MEDICARE, MEDICAID, SELFPAY ==
[2024-12-14 17:10] LABS: Absolute Lymphocyte Count 1.97 X10^3/uL (0.83-4.51); Absolute Neutrophil Count 4.2 X10^3/uL (2.0-7.7); Basophil# 0.05 X10^3/uL; Basophil% 0.7 % (0-1); Eosinophil# 0.05 X10^3/uL; Eosinophils% 0.7 % (0-5); Hematocrit 43.2 % (37-47); Hemoglobin 14.7 g/dL (12.0-15.0); Lymphocyte # 1.97 X10^3/ul (0.83-4.51); Lymphocyte % 29.4 % (19-41); Mean Corpuscular Hgb 32.2 pg (27.0-32.0); Mean Corpuscular Volume 94.5 fL (81-99); Mean Platelet Vol. 11.3 fl (6.2-12.0); NRBC Flagged by Analyzer 0 % (0-5); Neutrophil # 4.21 X10^3/uL (2.7-7.7); Neutrophil % 63.1 % (47-70); Platelet Count 186 K/mm3 (150-450); RBC Distribution Width CV 13.3 % (11.6-14.6); RBC Distribution Width SD 46.4 fl (35.1-43.9); Red Blood Count 4.57 M/mm3 (4.2-5.4); White Blood Count 6.7 K/mm3 (4.4-11.0)
[2024-12-14 18:07] LABS: ALB/GLOB Ratio 1.4 RATIO (0.9-2.4); AST(SGOT) 16 U/L (<=31); Alanine Aminotransfer ALT/SGPT 8 U/L (<=34); Albumin, Serum 4.3 g/dL (3.5-5.0); Alkaline Phosphatase 55 U/L (35-104); Anion Gap 16 (5-15); BUN 11 mg/dL (4-19); BUN/Creat Ratio 12.8 RATIO (10-20); Calcium,Total 9.6 mg/dL (7.6-11.0); Carbon Dioxide 16.4 mmol/L (21.0-32.0); Chloride 107 mmol/L (98-108); Cholesterol 198 mg/dL (<=200); Creatinine, Serum 0.82 mg/dL (0.70-1.20); EST Glomerular Filtration Rate 82 (>60); Globulin 3.1 g/dL (2.2-4.2); Glucose 98 mg/dL (70-99); High Density Lipoprotein 71 mg/dL; Low Density Lipoprotein Calc. 108 mg/dL; Potassium 3.9 mmol/L (3.3-5.1); Protein, Total 7.4 g/dL (5.9-8.4); Sodium Level 139 mmol/L (133-145); Total Bilirubin 0.29 mg/dL (0.00-1.30); Triglycerides 95 mg/dL; Very Low Density Lipoprotein 19 mg/dL (5-40); cholesterol:hdl ratio screen 2.78
[2024-12-14 23:13] LABS: Hemoglobin A1c 5.8 % (<=5.6)
[2024-12-16 04:07] LABS: PROLACTIN 35.9 ng/mL (3.6-25.2)
== END | disposition home or self-care (01) ==
LOC: VSLAB 15:37
PROVIDERS: PCP Nurse Practitioner Family; Visit Provider Registered Nurse
DX: R56.9 Unspecified convulsions (principal); Z79.899 Other long term (current) drug therapy
CPT/HCPCS: 36415; 80053; 80061; 83036; 83735; 84146; 84443; 85025